=== PATIENT | male | born 1955 | race Caucasian/White ===

== ENCOUNTER 2021-03-09 02:59 | Inpatient (IN) | payer OTHER ==
[~2021-03-09] VITALS: Ht 180.3 cm; Wt 137.0 kg
[2021-03-09 04:33] LABS: BASOPHIL 0.2 % (0-2); EOSINOPHIL 0.4 % (0-7); HCT 39.4 % (42.0-52.0); HGB 12.8 g/dl (13.2-18.0); LYMPHOCYTE 7.4 % (15-48); MCH 30.1 pg (25.0-31.0); MCHC 32.5 g/dL (32.0-36.0); MCV 92.7 fL (78.0-100.0); MONOCYTE 2.7 % (0-12); MPV 10.8 fL (6.0-9.5); NEUTROPHIL 88.9 % (41-80); NRBC 0; PLT 227 K/uL (150-400); RBC 4.25 M/uL (4.70-6.00); RDW 14.2 % (11.5-14.0); WBC 11.6 K/uL (4.0-10.5)
[2021-03-09 04:57] LABS: BILIRUBIN NEGATIVE (NEGATIVE); BLOOD TRACE-INTACT Ery/uL (NEGATIVE); CLARITY CLEAR (CLEAR); COLOR YELLOW (YELLOW); GLUCOSE (U) 1+ mg/dL (NORMAL); LEUKOCYTES NEGATIVE Leu/uL (NEGATIVE); NITRITE NEGATIVE (NEGATIVE); PROTEIN TRACE (LOW) mg/dL (NEGATIVE); SPECIFIC GRAVITY >=1.030 (1.001-1.030)
[2021-03-09 05:03] LABS: BACTERIA 1+; URINARY WBC RARE
[2021-03-09 05:04] LABS: BILIRUBIN - TOTAL 1.2 mg/dL (0.2-1.0); BUN/CREAT RATIO (CALC) 18.6 RATIO; C-REACTIVE PROTEIN 13.5 mg/dL (<=0.90); CREATININE 1.18 mg/dL (0.67-1.17); GLOBULIN (CALCULATION) 3.8 g/dL; MAGNESIUM 1.1 mg/dL (1.8-2.4); POTASSIUM 3.9 mmol/L (3.5-5.1); TOTAL PROTEIN 6.8 g/dL (6.4-8.2)
[2021-03-09 05:20] LABS: LACTIC ACID 4.6 mmol/L (0.4-1.9)
[2021-03-09] MEDS ORDERED: ALLOPURINOL300 MG PO (07:54)
[2021-03-09] MEDS ORDERED: LIPITOR 10MG TA10 MG PO (07:55)
[2021-03-09] MEDS ORDERED: PROSCAR5 MG PO (07:55)
[2021-03-09] MEDS ORDERED: PRINIVIL20 MG PO (07:55)
[2021-03-09] MEDS ORDERED: FLOMAX 0.4 MG0.4 MG PO (07:56)
[2021-03-09] MEDS ORDERED: MOBIC15 MG PO (07:58)
[2021-03-09] MEDS ORDERED: GLUCOTROL10 MG PO (07:59)
[2021-03-09] MEDS ORDERED: METFORMIN HCL500 MG PO (07:59)
[2021-03-09] MEDS ORDERED: NEXIUM20 MG PO (08:00)
[2021-03-09] MEDS ORDERED: NORCO 5-325 TA1 EACH PO (08:01)
[2021-03-09] MEDS ORDERED: HCTZ25 MG PO (10:32)
[2021-03-10 04:03] LABS: BASOPHIL 0.3 % (0-2); EOSINOPHIL 1.3 % (0-7); HCT 36.7 % (42.0-52.0); HGB 12.1 g/dl (13.2-18.0); LYMPHOCYTE 12.1 % (15-48); MCH 30.5 pg (25.0-31.0); MCV 92.4 fL (78.0-100.0); MONOCYTE 10.9 % (0-12); MPV 10.6 fL (6.0-9.5); NEUTROPHIL 74.9 % (41-80); NRBC 0; PLT 218 K/uL (150-400); RBC 3.97 M/uL (4.70-6.00); RDW 14.2 % (11.5-14.0); WBC 10.3 K/uL (4.0-10.5)
[2021-03-10 04:26] LABS: CREATININE 1.03 mg/dL (0.67-1.17); MAGNESIUM 1.5 mg/dL (1.8-2.4); POTASSIUM 3.7 mmol/L (3.5-5.1)
[2021-03-10] MEDS ORDERED: CEFDINIR300 MG PO (09:29)
[2021-03-10] MEDS ORDERED: METRONIDAZOLE500 MG PO (09:29)
--- NOTE | 2021-03-10 10:54 | NUR ---
DISCHARGE ORDERS RECEIVED. PT VERBALIZED UNDERSTANDING OF ALL DISCHARGE ORDERS AND MEDICATIONS. OUT PATIENT CT ORDERED. PHONE NUMBER GIVEN TO PT TO CALL FOR APPOINTMENT. IV DC'D. PT TO PT PICKUP VIA WHEELCHAIR.
== END 2021-03-10 11:00 | disposition home or self-care (01) | DRG 872 ==
LOC: FER 02:59 → FTCU 06:02 → FER 07:00 → FTCU 03-10 11:00
PROVIDERS: Emergency Medicine; ADMIT Internal Medicine
DX: A41.9 Sepsis, unspecified organism (principal); N17.9 Acute kidney failure, unspecified; E87.2 Acidosis; R65.20 Severe sepsis without septic shock; K05.30 Chronic periodontitis, unspecified; I10 Essential (primary) hypertension; Z20.822 Contact with and (suspected) exposure to COVID-19; E11.9 Type 2 diabetes mellitus without complications; M10.9 Gout, unspecified; E83.42 Hypomagnesemia; N28.89 Other specified disorders of kidney and ureter; E86.0 Dehydration; E78.00 Pure hypercholesterolemia, unspecified; Z88.0 Allergy status to penicillin; Z79.84 Long term (current) use of oral hypoglycemic drugs; Z79.899 Other long term (current) drug therapy
CPT/HCPCS: 36415; 70487; 71046; 71250; 80048; 80053; 81001; 82728; 82962; 83605; 83615; 83735; 83880; 84145; 85025; 86140; 87040; 93005; J0692; J0696; J2543; J3370; J3475; J7030; J7050; J7120; Q9967; U0002